=== PATIENT | female | born 1975 | race Caucasian/White ===

== ENCOUNTER 2017-06-09 10:00 | Emergency (ER) | payer SELFPAY ==
[~2017-06-09] VITALS: Ht 162.6 cm; Wt 56.8 kg
[~2017-06-09 10:00] MED LIST: LEVO.15 PO; Z.0.BCPILL PO
[2017-06-09 10:13] VITALS: BP 124/81; PULSE 97; RESP 18; TEMP 98.3; O2SAT 95
--- NOTE | 2017-06-09 10:26 | PD ---
HPI Chief Complaint: Respiratory Symptoms Time Seen by Provider: 10:18 Travel History International Travel<30 days: No Contact w/Intl Traveler<30days: No Traveled to known affect area: No History of Present Illness HPI Patient comes in the emergency department complaining of asthma exacerbation that began last night. Patient reports nonproductive coughing and shortness of breath similar to previous asthma exacerbations. Patient been trying to use her inhaler with no improvement of symptoms. Denies anything making it worse. Patient reports going outside in cold helped improve her symptoms. Denies any fevers, nausea, vomiting, chest pain, or headaches. PFSH Past Medical History Asthma: Yes Cancer: No Cardiovascular Problems: No Diabetes: No Diminished Hearing: No Glaucoma: No Hepatitis: No Hiatal Hernia: No Hypertension: No Medical other: No Respiratory: Yes (asthma) Thyroid Disease: Yes Influenza Vaccination: Yes ?: Not LMP: 05/19/17 Menopausal: No Past Surgical History Abdominal Surgery: Yes (REPAIR BILATERAL INGUINAL HERNIA AGE 8) Other Surgery: Yes (bilat inguinal hernia repair) Social History Alcohol Use: Yes (SOCIALLY) Tobacco Use: No Substance Use: No Allergies-Medications (Allergen,Severity, Reaction): Coded Allergies: No Known Allergies (Verified , 01/08/10) Reported Meds & Prescriptions Reported Meds & Active Scripts Active Prednisone (21) 10 mg tab Dose Pack (Prednisone) 10 Mg Pack 10 Mg PO DIRECTED Albuterol Neb (Albuterol Sulfate) 2.5 Mg/3 Ml Neb 2.5 Mg NEB Q4HR NEB While awake Ventolin Hfa 18 GM Inh (Albuterol Sulfate) 90 Mcg/Act Aer 2 Puff INH Q4-6H PRN Review of Systems Except as stated in HPI: all other systems reviewed are Neg Physical Exam Narrative GENERAL: Well-developed, well nourished, in no acute distress, and non-ill appearing. SKIN: Focused skin assessment warm and dry. HEAD: Atraumatic. Normocephalic. EYES: Pupils equal and round. EOMI. No scleral icterus. No injection or drainage. ENT: No nasal bleeding or discharge. Mucous membranes pink and moist. NECK: Trachea midline. Supple. No nuclear rigidity. CARDIOVASCULAR: Regular rate and rhythm. No murmur appreciated. RESPIRATORY: No accessory muscle use. No respiratory distress. Tight breath sounds with scant wheezing throughout. Breath sounds equal bilaterally. MUSCULOSKELETAL: No obvious deformities. No clubbing. No cyanosis. No edema. Full range of motion. NEUROLOGICAL: Awake and alert. No obvious cranial nerve deficits. Motor grossly within normal limits. Normal speech. PSYCHIATRIC: Appropriate mood and affect; insight and judgment normal. Data Data Last Documented VS Vital Signs Date Time Temp Pulse Resp B/P (MAP) Pulse Ox O2 Delivery O2 Flow Rate FiO2 06/09/17 11:28 93 16 120/74 (89) 98 06/09/17 10:13 98.3 Orders Orders Albuterol-Ipratropium Neb (Duoneb Neb) (06/09/17 10:30) Prednisone (Deltasone) (06/09/17 10:30) Ed Discharge Order (06/09/17 11:25) [facility] Medical Decision Making Medical Screen Exam Complete: Yes Emergency Medical Condition: Yes Differential Diagnosis Asthma exacerbation, bronchitis, pneumonia, URI Narrative Course The patient looks great and improved well with Nebulizer and steroid medication. The patient is moving air well and in no distress nor significant dyspnea, and oxygen saturation is within normal limits. There is no clinical evidence to suggest pneumonia at this time. Diagnosis, plan of care and management were discussed with the patient who agreed with plan and feels better and ready to go home. The patient was instructed to return if worsen, worsening difficulty breathing or wheezing, persistent fever, chest pain or as needed. Patient in no obvious distress upon re-evaluation. Patient was asked if they wanted to speak to my attending, which the patient did not wish to do at this time. Any questions/concerns in reference to patient diagnosis/condition discussed and clarified prior to patient's discharge. Reinforced sheer importance of close follow up with patient's primary physician or primary care clinic. Instructed patient to return to ED immediately, if symptoms return/ worsen. Patient showed understanding of above instructions. Further instructions and recommendations were detailed in discharge paperwork. Patient ambulated without difficulty out of ED at discharge. Diagnosis Primary Impression: Asthma exacerbation Qualified Codes: J45.901 - Unspecified asthma with (acute) exacerbation Referrals: [facility] Patient Instructions: Asthma (ED), General Instructions Additional Instructions: Follow-up with your primary care physician next week for reevaluation. Take all medication as prescribed. Return to the emergency department if symptoms get worse. Med/Other Pt SpecificInfo: Prescription(s) given Scripts Prednisone (21) 10 mg tab Dose Pack (Prednisone (21) 10 mg tab Dose Pack) 10 Mg Pack 10 MG PO DIRECTED for Inflammation, #1 DSPK 0 Refills Prov: Derrell Gordillo MD 06/09/17 Albuterol Neb (Albuterol Neb) 2.5 Mg/3 Ml Neb 2.5 MG NEB Q4HR NEB for Breathing Treatment, #60 NEBULE 0 Refills While awake Prov: Derrell Gordillo MD 06/09/17 Albuterol 18 GM Inh (Ventolin Hfa 18 GM Inh) 90 Mcg/Act Aer 2 PUFF INH Q4-6H Y for SHORTNESS OF BREATH, #1 INHALER 0 Refills Prov: Derrell Gordillo MD 06/09/17 Disposition: 01 DISCHARGE HOME Condition: Stable Gary Layne Jun 09, 2017 10:26
[2017-06-09] MEDS ORDERED: predniSONE 20 MG TAB PO ONE (10:30)
[2017-06-09] MEDS: RESP: ALBUTEROL 2.5 MG/IPRATROPIUM 0.5 MG NEB (SCH) INH (10:33)
[2017-06-09] MEDS ORDERED: PRED10PA PO (11:24)
[2017-06-09] MEDS ORDERED: ALBU0.08 NEB (11:24)
[2017-06-09] MEDS ORDERED: VENTAER INH (11:24)
[2017-06-09 11:28] VITALS: BP 120/74
== END 2017-06-09 11:30 | disposition home or self-care (01) ==
LOC: PHEFT 10:00
DX: J45.901 Unspecified asthma with (acute) exacerbation (principal)
CPT/HCPCS: 94640; 94664; 99284; J7512